=== PATIENT | female | born 1985 | race Caucasian/White ===

== ENCOUNTER 2021-01-31 12:13 | Emergency (ER) | payer SELFPAY ==
[~2021-01-31] VITALS: Ht 170.2 cm; Wt 82.0 kg
[2021-01-31] MEDS ORDERED: SODIUM CHLORIDE 0.9% 1,000 ML IV ONE (12:30)
[2021-01-31 12:57] LABS: BASOPHILS % 0.6 % (0.0-2.0); EOSINOPHILS % 3.5 % (0.0-5.0); HEMATOCRIT. 36.8 % (36.0-48.0); HEMOGLOBIN. 12.9 g/dL (12.0-16.0); MEAN CORPUSCULAR HEMOGLOBIN 35.4 pg (28.0-32.0); MEAN CORPUSCULAR VOLUME 101.1 fL (81.0-99.0); MEAN PLATELET VOLUME 8.2 fl (7.4-10.4); MONOCYTES % 5.6 % (2.0-8.0); NEUTROPHILS % 45.3 % (40.0-76.0); PLATELET 371 x1000/uL (130-400); RED BLOOD CELL COUNT 3.64 mill/uL (4.2-5.4); RED CELL DISTRIBUTION WIDTH 13.8 % (11.6-14.6)
[2021-01-31 13:04] LABS: CHLORIDE 115 mEq/L (98-107)
[2021-01-31 13:10] LABS: HCG SCREEN NEGATIVE
[2021-01-31 13:16] LABS: ETHANOL BLOOD 420 mg/dL
[2021-01-31 13:46] VITALS: BP 122/86
== END 2021-01-31 13:47 | disposition home or self-care (01) ==
LOC: ER 12:33
DX: F10.229 Alcohol dependence with intoxication, unspecified (principal); Y90.8 Blood alcohol level of 240 mg/100 ml or more
CPT/HCPCS: 36415; 80053; 80320; 84703; 85025; 96360; 99283; J7030; G0480